=== PATIENT | female | born 2000 | race Two or more races ===

== ENCOUNTER 2021-03-10 11:19 | Emergency (ER) | payer OTHER ==
[~2021-03-10] VITALS: Ht 160 cm; Wt 68.0 kg
[2021-03-10 12:26] LABS: Urine Bacteria FEW /hpf (None Seen); Urine Blood 3+ /uL (Negative); Urine Mucus FEW (None Seen); Urine Specific Gravity 1.028 (1.001-1.035); Urine WBC 22 /hpf (0 - 5)
[2021-03-10 13:43] LABS: Basophils # (auto) 0 10 ^3/uL (0-0.2); Basophils % (auto) 0.5 % (0.0-2.0); Eosinophils # (auto) 0.1 10 ^3/uL (0-0.8); Hematocrit 43.7 % (36.0-46.0); Hemoglobin 15.4 g/dL (12.2-16.2); Lymphocytes # (auto) 2.6 10 ^3/uL (0.4-5.4); Lymphocytes % (auto) 27.7 % (10.0-50.0); Mean Corpuscular Hemoglobin 31.5 pg (28.0-32.0); Mean Corpuscular Hgb Conc. 35.2 g/dL (32.0-36.0); Mean Corpuscular Volume 89.4 fL (80.0-100.0); Monocytes # (auto) 0.8 10 ^3/uL (0-1.3); Neutrophils # (auto) 5.9 10 ^3/uL (1.6-8.6); Neutrophils % (auto) 62.8 % (37.0-80.0); Nucleated Red Blood Cells % 0.1 %; Red Blood Cells 4.89 10^6/uL (4.0-5.20); Red Cell Distribution Width 12.6 % (11.8-14.3); White Blood Cell 9.4 10^3/uL (4.4-10.8)
[2021-03-10 13:46] LABS: Albumin 4.4 g/dL (3.4-5.0); Calcium 9.2 mg/dL (8.5-10.1); Potassium 3.9 mmol/L (3.5-5.1)
[2021-03-10 13:49] LABS: BUN/Creatinine Ratio 15.2; Bilirubin, Total 0.3 mg/dL (0.2-1.0)
[2021-03-10] MEDS ORDERED: cefTRIAXone 1GM/50ML D5W 50 ML IV ONE (14:00)
[2021-03-10] MEDS ORDERED: IOHEXOL 350 MG/ML 100ML IJ ONE (15:06)
[2021-03-10 17:35] VITALS: BP 112/68
== END 2021-03-10 17:38 | disposition home or self-care (01) ==
LOC: ER 11:19
DX: N39.0 Urinary tract infection, site not specified (principal)
CPT/HCPCS: 36415; 71045; 71275; 80053; 81001; 81025; 84702; 85025; 85379; 93005; 96365; 99285; J0696; Q9967

== ENCOUNTER 2024-04-10 17:18 | Emergency (ER) | payer OTHER ==
[~2024-04-10] VITALS: Ht 162.6 cm; Wt 78.0 kg
--- NOTE | 2024-04-10 17:37 | ED.PDOC ---
History of Present Illness HPI Comments 23-year-old female with no PMHx or PSHx presents with a chief complaint of vaginal bleeding x onset today with associated pelvic pain and . Patient states that she is roughly 9 weeks , . Patient reports that she went to use the bathroom and noticed that she had some light vaginal spotti ng and lower pelvic cramping. Patient reports that the pelvic pain has subsided at this time. 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 No other symptoms or modifying factors present at this time. Time Seen by MD: 17:31 Reviewed Notes: Medications, Allergies Allergies: Coded Allergies: NO KNOWN ALLERGIES (Unverified , 08/24/22) Home Meds Active Scripts Nitrofurantoin Monohydrate Mac (Macrobid) 100 Mg Cap, 100 MG PO BID for 5 Days, #10 CAP Prov:LIEN ALICEA MD 04/10/24 Information Source: Patient Mode of Arrival: Ambulatory Severity: Moderate Timing: Minutes Duration: Since onset Prehospital treatment: None Past Medical History PAST MEDICAL HISTORY: Denies Surgical History: Denies all surgeries THEATER MANAGER History: Denies all THEATER MANAGER Hx Family History Family History: Family hx of Cancer Social History Smoker: Non-Smoker Alcohol: Denies ETOH Use Drugs: Denies Drug Use Lives In: Home Constitutional: denies: chills, diaphoresis, fatigue, fever, malaise, sweats, weakness, others EENTM: denies: blurred vision, double vision, ear bleeding, ear discharge, ear drainage, ear pain, ear ringing, eye pain, eye redness, hearing loss, mouth pain, mouth swelling, nasal discharge, nose bleeding, nose congestion, nose pain, photophobia, tearing, throat pain, throat swelling, voice changes, others Respiratory: denies: cough, hemoptysis, orthopnea, SOB at rest, shortness of breath, SOB with excertion, stridor, wheezing, others Cardiovascular: denies: chest pain, dizzy spells, diaphoresis, Dyspnea on exertion, edema, irregular heart beat, left arm pain, lightheadedness, palpitations, PND, syncope, others Gastrointestinal: denies: abdomen distended, abdominal pain, blood streaked bowels, constipated, diarrhea, dysphagia, difficulty swallowing, hematemesis, melena, nausea, poor appetite, poor fluid intake, rectal bleeding, rectal pain, vomiting, others Genitourinary: reports: abnormal vagina bleeding, pain, ; denies: burning, dyspareunia, dysuria, flank pain, frequency, hematuria, incontinence, vagina discharge, urgency, others Neurological: denies: dizziness, fainting, headache, left sided numbness, left sided weakness, numbness, paresthesia, pre-existing deficit, right sided numbness, right sided weakness, seizure, speech problems, tingling, tremors, weakness, others Musculoskeletal: denies: back pain, gout, joint pain, joint swelling, muscle pain, muscle stiffness, neck pain, others Integumetry: denies: bruises, change in color, change in hair/nails, dryness, laceration, lesions, lumps, rash, wounds, others Allergic/Immunocompromised: denies: Difficulty Healing, Frequent Infections, Hives, Itching, others Hematologic/Lymphatic: denies: anemia, blood clots, easy bleeding, easy bruising, swollen glands, others Endocrine: denies: excessive hunger, excessive sweating, excessive thirst, excessive urination, flushing, intolerance to cold, intolerance to heat, unexplained weight gain, unexplained weight loss, others Psychiatric: denies: anxiety, bipolar disorder, depression, hopeless, panic disorder, schizophrenia, sleepless, suicidal, others All Other Systems: Reviewed and Negative Physical Exam General Appearance: No Apparent Distress HEENT: Normal ENT Inspection, Pharynx Normal, TMs Normal Neck: Full Range of Motion, Non-Tender, Normal, Normal Inspection Respiratory: Chest Non-Tender, Lungs Clear, No Accessory Muscle Use, No Respiratory Distress, Normal Breath Sounds Cardiovascular: No Edema, No JVD, No Murmur, No Gallop, Normal Peripheral Pulses, Regular Rate/Rhythm Breast Exam: Deferred Gastrointestinal: No Organomegaly, Non Tender, No Pulsatile Mass, Normal Bowel Sounds, Soft Genitalia: Deferred Pelvic: Deferred Rectal: Deferred Extremities: No calf tenderness, Normal capillary refill, Normal inspection, Normal range of motion, Non-tender, No pedal edema Musculoskeletal : Apperance: Normal Neurologic: Alert, 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 Was a procedure done?: No Differential Dx Considerations may include: demise, threatened , UTI X-Ray, Labs, Meds, VS Vital Signs Date Time Temp Pulse Resp B/P (MAP) Pulse Ox O2 Delivery O2 Flow Rate FiO2 04/10/24 17:58 98.4 83 18 121/84 (96) 100 Lab Test 04/10/24 18:01 04/10/24 17:31 Range/Units Beta HCG, Quantitative 5198.5 H 1.5-4.2 mIU/mL Urine Color Yellow Yellow Urine Clarity Turbid H Clear Urine pH 5.5 5.0-9.0 Urine Specific [place] 1.035 1.001-1.035 Urine Protein Trace H Negative Urine Ketones Trace Negative Urine Blood 1+ H Negative /uL Urine Nitrite Negative Negative Urine Bilirubin Negative Negative Urine Urobilinogen Normal Negative mg/dL Urine Leukocyte Esterase Trace Negative /uL Urine RBC 5 0 - 4 /hpf Urine WBC 6 0 - 5 /hpf Urine Squamous Epithelial Cells Few <5 /hpf Urine Bacteria Few H None Seen /hpf Urine Mucus Few None Seen Urine Glucose Normal Normal mg/dL The urine test is positive for a UTI The patient was given a prescription of Macrobid The ultrasound of the pelvis shows no heart rate and there is a chance that this patient is miscarrying or has demise The patient was discharged and told to follow up with her OBGYN The patient should have a repeat quantitative hCG in the next couple of days Time of 1ST Reevaluation: 18:01 Reevaluation 1ST: Unchanged Patient Education/Counseling: Diagnosis, Treatment, Prognosis, Need For Follow Up Family Education/Counseling: No Family Present Departure 1 Departure Time of Disposition: 19:46 Impression: Primary Impression: Threatened Additional Impression: UTI in Qualified Codes: O23.40 - Unspecified infection of urinary tract in , unspecified trimester Disposition: HOME / SELF CARE / HOMELESS Condition: Fair e-Prescriptions Nitrofurantoin Monohydrate Mac (Macrobid) 100 Mg Cap 100 MG PO BID for 5 Days, #10 CAP Prov: LIEN ALICEA MD 04/10/24 Discharged With: Self Critical Care Note Critical Care Time?: No Stability Stability form required: No Heart Score Heart Score: Heart Score Response (Comments) Value History N/A 0 EKG N/A 0 Age N/A 0 Risk Factors N/A 0 Troponin N/A 0 Total 0 I personally scribed for LIEN ALICEA MD ([email or web address]) on 04/10/24 at 17:37. Electronically submitted by Geremias Hernandez ([email or web address]). LIEN ALICEA MD Apr 10, 2024 17:37
[2024-04-10 17:53] LABS: Urine Bacteria FEW /hpf (None Seen); Urine Blood 1+ /uL (Negative); Urine Clarity Turbid (Clear); Urine Color Yellow (Yellow); Urine Mucus FEW (None Seen); Urine Protein, UAD TRACE (Negative); Urine Specific Gravity 1.035 (1.001-1.035); Urine Urobilinogen Normal (Negative); Urine WBC 6 /hpf (0 - 5); Urine pH 5.5 (5.0-9.0)
--- NOTE | 2024-04-10 19:25 | DVH ---
OB EVALUATION, LESS THAN 14 WEEKS CLINICAL HISTORY: pain COMPARISON: None TECHNIQUE: Grayscale, color-flow Doppler, and spectral Doppler ultrasound of the pelvis is performed by transabdominal and transvaginal technique. FINDINGS: The uterus measures 7.6 x 4.8 x 5.0 cm. Irregular appearing intrauterine gestational sac with yolk sac is identified. Possible pole al so noted. No heart rate detected. Yolk sac appears abnormally enlarged. Debris is also noted wi thin the gestational sac. Mean gestational sac diameter 2.7 cm. [place]-rump length 1 cm. Average gest ational age 7 weeks 2 days. Right ovary is not visualized. Left ovary measures 3.1 x 2.5 x 3.6 cm. Left ovary demonstrates doppl erable blood flow on spectral analysis. No significant free fluid in the cul-de-sac. Trace fluid within the lower endometrial canal. IMPRESSION: Above findings suggest threatened/incomplete miscarriage. Recommend interval follow-up and correlatio n with serial beta HCG testing.
[2024-04-10] MEDS ORDERED: NITR-87 PO (19:27)
[2024-04-10 19:59] VITALS: BP 110/74; PULSE 78; RESP 15; O2SAT 96
== END 2024-04-10 20:03 | disposition home or self-care (01) ==
LOC: ER 17:18
DX: O20.0 Threatened abortion (principal); O23.41 Unspecified infection of urinary tract in pregnancy, first trimester; N39.0 Urinary tract infection, site not specified; Z3A.09 9 weeks gestation of pregnancy
CPT/HCPCS: 36415; 76801; 76817; 81001; 84702

== ENCOUNTER 2024-04-11 05:06 | Emergency (ER) | payer OTHER ==
[~2024-04-11] VITALS: Ht 162.6 cm; Wt 64.6 kg
[~2024-04-11 05:06] MED LIST: NITR-87 PO
--- NOTE | 2024-04-11 06:31 | ED.PDOC ---
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 PATIENT REPORTS THAT SHE WAS 9 WEEKS WHEN SHE WAS SEEN YESTERDAY FOR VAGINAL SPOTTING AND SUPRAPUBIC CRAMPING. PATIENT RELAYS THAT SHE WAS NOT TOLD HER US RESULTS, BUT SHE WAS TOLD SHE WAS HAVING A MISCARRIAGE. PATIENT STATES THAT SHE PASSED HER FIRST CLOT DURING THE US YESTERDAY, BUT CONTINUED TO DO SO THROUGHOUT THE DAY TILL NOW ALONG WITH EXPERIENCING WORSENING SUPRAPUBIC CRAMPING AROUND 9PM. PATIENT NOTES SHE TOOK MIDOL, BUT HAD NO RELIEF FOR HER PAIN. PATIENT DENIES ANY NAUSEA, VOMITING, DIARRHEA, FEVER, CHILLS, VAGINAL DISCHARGE, DYSURIA, OR DIZZINESS. PATIENT DENIES ANY FURTHER COMPLAINTS AT THIS TIME. Chief Complaint: Pelvic Pain Time Seen by MD: 06:16 Reviewed Notes: Nurses Notes, Medications, Allergies Allergies: Coded Allergies: NO KNOWN ALLERGIES (Unverified , 08/24/22) Home Meds Active Scripts Nitrofurantoin Monohydrate Mac (Macrobid) 100 Mg Cap, 100 MG PO BID for 5 Days, #10 CAP Prov:LIEN ALICEA MD 04/10/24 Information Source: Patient Mode of Arrival: Ambulatory Timing: Days Prehospital treatment: None Severity: Moderate Vaginal Discharge: None Vaginal Lesions: None Bleeding Quality: Bright Red, Clotted Onset Of Mass/Bleeding: Spontaneous Sexual Activity: History of: Current Associated Signs and Symptoms: Vaginal Bleeding, Cramping Past Medical History PAST MEDICAL HISTORY: Denies Surgical History: Denies all surgeries 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 CLEANER MECHANIC History: Denies all VACUUM CLEANER MECHANIC Hx Family History Family History: Family hx of Cancer Social History Smoker: Non-Smoker Alcohol: Denies ETOH Use Drugs: Denies Drug Use Lives In: Home Constitutional: denies: chills, diaphoresis, fatigue, fever, malaise, sweats, weakness, others EENTM: denies: blurred vision, double vision, ear bleeding, ear discharge, ear drainage, ear pain, ear ringing, eye pain, eye redness, hearing loss, mouth pain, mouth swelling, nasal discharge, nose bleeding, nose congestion, nose pain, photophobia, tearing, throat pain, throat swelling, voice changes, others Respiratory: denies: cough, hemoptysis, orthopnea, SOB at rest, shortness of breath, SOB with excertion, stridor, wheezing, others Cardiovascular: denies: chest pain, dizzy spells, diaphoresis, Dyspnea on exertion, edema, irregular heart beat, left arm pain, lightheadedness, palpitations, PND, syncope, others Gastrointestinal: reports: abdominal pain; denies: abdomen distended, blood streaked bowels, constipated, diarrhea, dysphagia, difficulty swallowing, hematemesis, melena, nausea, poor appetite, poor fluid intake, rectal bleeding, rectal pain, vomiting, others Genitourinary: reports: abnormal vagina bleeding, ; denies: burning, dyspareunia, dysuria, flank pain, frequency, hematuria, incontinence, pain, vagina discharge, urgency, others Neurological: denies: dizziness, fainting, headache, left sided numbness, left sided weakness, numbness, paresthesia, pre-existing deficit, right sided numbness, right sided weakness, seizure, speech problems, tingling, tremors, weakness, others Musculoskeletal: denies: back pain, gout, joint pain, joint swelling, muscle pain, muscle stiffness, neck pain, others Integumetry: denies: bruises, change in color, change in hair/nails, dryness, laceration, lesions, lumps, rash, wounds, others Allergic/Immunocompromised: denies: Difficulty Healing, Frequent Infections, Hives, Itching, others Hematologic/Lymphatic: denies: anemia, blood clots, easy bleeding, easy bruising, swollen glands, others Endocrine: denies: excessive hunger, excessive sweating, excessive thirst, excessive urination, flushing, intolerance to cold, intolerance to heat, unexplained weight gain, unexplained weight loss, others Psychiatric: denies: anxiety, bipolar disorder, depression, hopeless, panic disorder, schizophrenia, sleepless, suicidal, others All Other Systems: Reviewed and Negative Physical Exam General Appearance: No Apparent Distress, Normal HEENT: Normal ENT Inspection, PERRL/EOMI, Pharynx Normal Neck: Full Range of Motion, Non-Tender, Normal, Normal Inspection Respiratory: Chest Non-Tender, Lungs Clear, No Accessory Muscle Use, No Respiratory Distress, Normal Breath Sounds Cardiovascular: No Edema, No JVD, No Murmur, No Gallop, Normal Peripheral Pulses, Regular Rate/Rhythm Breast Exam: Deferred Gastrointestinal: No Organomegaly, Non Tender, No Pulsatile Mass, Normal Bowel Sounds, Soft Genitalia: Deferred Pelvic: Normal External Exam, Vaginal Bleeding (NO VAGINAL BLOOD CLOTS AND TISSUE SEEN. 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 Was a procedure done?: Yes Sedation Sedation?: No Pelvic Exam Vaginal Discharge: None Vaginal Lesions: None Bleeding Quality: Bright Red, Clotted Cervix: os closed Differential Diagnosis (VACUUM CLEANER MECHANIC) Vaginal Bleeding: - Complete, - Incomplete, Ectopic X-Ray, Labs, Meds, VS Vital Signs Date Time Temp Pulse Resp B/P (MAP) Pulse Ox O2 Delivery O2 Flow Rate FiO2 04/11/24 07:00 87 18 98 Room Air* 0 21 04/11/24 07:00 98.4 99 16 125/84 (98) 100 98.4 04/11/24 05:13 98.4 99 16 125/84 (98) 100 Lab Test 04/11/24 06:20 Range/Units Beta HCG, Quantitative 3883.8 H 1.5-4.2 mIU/mL OB US: FINDINGS: The uterus measures 8.1 x 3.4 x 6.1 cm. There is homogeneous echogenicity. Endometrial thickness measures 1.0 cm, within normal limits. Endometrium appears fairly homogeneous in echogenicity. No definite retained products of conception are seen. No intrauterine visualized. Right ovary measures 2.5 x 2.2 x 1.6 cm. Arterial and venous blood flow demonstrated. Left ovary measures 3.9 x 3.0 x 2.4 cm. Arterial and venous blood flow demonstrated. IMPRESSION: 1. Unremarkable sonographic appearance of the uterus. Previously seen intrauterine is not visualized. 2. No definite retained products of conception identified on this exam. Correlate with clinical findings. X-Ray, Labs, Meds, VS Comment LABS AND IMAGING ORDERED: BETA HCG AND OB ULTRASOUND REVIEWED AND INTERPRETED RESULTS: BETA HCG, CHART FROM 04/10, AND OB ULTRASOUND INDEPENDENT HISTORIANS: NONE PREVIOUS CHART REVIEWED. DISCUSSED TREATMENT AND RESULTS WITH MEDICAL PERSONNEL. I HAVE DISCUSSED LAB AND IMAGING RESULTS WITH PATIENT SHOWING NO PCOS, IUP AND SPONTANEOUS . PATIENT INSTRUCTED TO FOLLOW UP WITH THEIR OBGYN IN 1-2 DAYS. THE PATIENT FULLY UNDERSTANDS THEIR RESULTS AND ARE AWARE THEY NEED TO FOLLOW UP WITH THEIR OBGYN FOR FURTHER EVALUATION IF THEIR SYMPTOMS PERSIST. Images Reviewed?: Images reviewed and evaluated by me Time of 1ST Reevaluation: 08:54 Reevaluation 1ST: Improved Patient Education/Counseling: Diagnosis, Treatment, Need For Follow Up Family Education/Counseling: Diagnosis, Treatment, Need For Follow Up, No Family Present Medical Screening: No EMC Exist At This Time Departure 1 Departure Time of Disposition: 09:00 Impression: Primary Impression: Vaginal bleeding Additional Impression: Spontaneous Disposition: HOME / SELF CARE / HOMELESS Condition: Stable Additional Instructions: FOLLOW-UP WITH OBGYN IN 1 TO 2 DAYS. RETURN TO ED FOR ANY NEW OR WORSENING SYMPTOMS. Written Prescriptions NAPROXEN 500MG AND METHERGINE 0.2MG Discharged With: Self, Relative Critical Care Note Critical Care Time?: No Stability Stability form required: No Heart Score Heart Score: Heart Score Response (Comments) Value History N/A 0 EKG N/A 0 Age N/A 0 Risk Factors N/A 0 Troponin N/A 0 Total 0 I personally scribed for JAZMINANDREE AhmadiA PA ([email or web address]) on 04/11/24 at 06:31. Electronically submitted by Armando Godinez ([email or web address]). I personally scribed for JAZMINYINXIA PA ([email or web address]) on 04/11/24 at 07:21. Electronically submitted by Armando Godinez ([email or web address]). I personally scribed for JAZMIN,YINXIA PA ([email or web address]) on 04/11/24 at 07:23. Electronically submitted by Armando Godinez ([email or web address]). I personally scribed for JAZMIN,YINXIA PA ([email or web address]) on 04/11/24 at 08:42. Electronically submitted by Armando Godinez ([email or web address]). I personally scribed for JAZMINYINXIA PA ([email or web address]) on 04/11/24 at 08:48. Electronically submitted by Armando Godinez ([email or web address]). RUTHY WU Apr 11, 2024 06:31
[2024-04-11 07:00] VITALS: BP 125/84; PULSE 87; RESP 18; TEMP 98.4; O2SAT 98
--- NOTE | 2024-04-11 08:34 | DVH ---
CLINICAL HISTORY: VAGINAL BLEEDING, BLOOD CLOTS, rule out retained products of conception. COMPARISON: US OB ULTRASOUND COMP LESS 14WKS on DOS: 04/10/24 TECHNIQUE: Transabdominal grayscale sonographic imaging of the uterus and ovaries was performed, assi sted by color Doppler technique. Duplex Doppler ultrasound of both ovaries was also performed. FINDINGS: The uterus measures 8.1 x 3.4 x 6.1 cm. There is homogeneous echogenicity. Endometrial thic kness measures 1.0 cm, within normal limits. Endometrium appears fairly homogeneous in echogenicity. No definite retained products of conception are seen. No intrauterine visualized. Right ovary measures 2.5 x 2.2 x 1.6 cm. Arterial and venous blood flow demonstrated. Left ovary measures 3.9 x 3.0 x 2.4 cm. Arterial and venous blood flow demonstrated. IMPRESSION: 1. Unremarkable sonographic appearance of the uterus. Previously seen intrauterine is not visualized. 2. No definite retained products of conception identified on this exam. Correlate with clinical find ings.
== END 2024-04-11 08:52 | disposition home or self-care (01) ==
LOC: ER 05:06
DX: O03.9 Complete or unspecified spontaneous abortion without complication (principal); O26.891 Other specified pregnancy related conditions, first trimester; R10.2 Pelvic and perineal pain; Z3A.09 9 weeks gestation of pregnancy
CPT/HCPCS: 36415; 76801; 84702